=== PATIENT | female | born 1960 | race Caucasian/White ===

== ENCOUNTER → 2017-07-29 | Outpatient (REF) | payer OTHER ==
[~2017-07-29] MED LIST: ASPI1TAB PO; CALC1TAB30 PO; FISH100049 PO; NISO17TA3 PO; WOMETAB4 PO
== END ==
LOC: M LAB REF 17:19
PROVIDERS: ATTEND Nurse Practitioner Adult Health
DX: R20.8 Other disturbances of skin sensation (principal)

== ENCOUNTER → 2021-08-14 | Outpatient (CLI) | payer OTHER ==
[~2021-08-14] MED LIST changes: -ASPI1TAB PO; +ASPI81TA26 PO
--- NOTE | 2021-08-14 11:04 | REP ---
INDICATION: HYPERTENSION,SMOKER,FAMILY HX AAA, R/O AAA COMPARISON: None. TECHNIQUE: Multiple ultrasonographic images of the abdominal aorta were obtained from the level of the celiac access to the aortoiliac bifurcation and the longitudinal and transverse scan planes along with color Doppler imaging. FINDINGS: The maximal AP dimension of the abdominal aorta as measured in the longitudinal scan plane is 2.2 cm. There is no evidence of common iliac arterial ectasia. IMPRESSION: No evidence of abdominal aortic aneurysm. <Electronically signed by Jose Daniel Smallwood > 08/14/21 [id number]
== END ==
LOC: M WHC 07:06
PROVIDERS: ATTEND Nurse Practitioner Adult Health
DX: I10 Essential (primary) hypertension (principal); Z82.49 Family history of ischemic heart disease and other diseases of the circulatory system; F17.200 Nicotine dependence, unspecified, uncomplicated

== ENCOUNTER 2025-05-28 02:50 | Emergency (ER) | payer MEDICARE, OTHER ==
[~2025-05-28] VITALS: Ht 170.2 cm; Wt 77.7 kg
[2025-05-28 02:55] VITALS: BP 141/79; TEMP 97; O2SAT 97
[2025-05-28 03:37] LABS: SP GRAVITY,URINE MANUAL REFLEX 1.030 (1.002-1.035)
[2025-05-28 03:38] LABS: KETONE, URINE MANUAL REFLEX NEGATIVE (NEGATIVE); NITRITE, URINE MANUAL RFX NEGATIVE (NEGATIVE); PROTEIN, URINE MANUAL REFLEX TRACE mg/dL (NEGATIVE); UROBILINOGEN, UA MANUAL REFLEX NORMAL (NORMAL)
[2025-05-28 03:51] LABS: MICROSCOPIC EXAM RFX UNSPUN
[2025-05-28 03:55] LABS: RBC, URINE MAN REFLEX 0-1 /hpf (0-3); SQUAMOUS EPITHELIAL URINE RFX NONE SEEN /hpf (SMALL AMT); WBC, URINE MAN RFX NONE SEEN /hpf (0-3)
[2025-05-28 03:56] LABS: HYALINE CAST, URINE RFX NONE SEEN /lpf (0-1)
== END 2025-05-28 03:45 | disposition left against medical advice (07) ==
LOC: M ED 02:50
DX: Z53.21 Procedure and treatment not carried out due to patient leaving prior to being seen by health care provider (principal)